=== PATIENT | female | born 2000 | race Caucasian/White ===

== ENCOUNTER 2023-01-17 09:01 | Emergency (ER) | payer OTHER, BC ==
[~2023-01-17] VITALS: Ht 170.2 cm; Wt 96.6 kg
[~2023-01-17 09:01] MED LIST: ADVIL200 MG PO; MICROGESTIN1 EACH PO; NORCO 5-325 TA1 EACH PO
[2023-01-17 10:02] VITALS: BP 135/84
== END 2023-01-17 10:02 | disposition home or self-care (01) ==
LOC: ED 09:01
DX: S61.411A Laceration without foreign body of right hand, initial encounter (principal); W27.4XXA Contact with kitchen utensil, initial encounter; Z23 Encounter for immunization; Z79.899 Other long term (current) drug therapy
CPT/HCPCS: 90715

== ENCOUNTER 2024-02-01 17:53 | Emergency (ER) | payer BC ==
[~2024-02-01] VITALS: Ht 170.2 cm; Wt 124.6 kg
[2024-02-01] MEDS ORDERED: MOUNJARO10 MG/0.5 SUB-Q (20:00)
[2024-02-01] MEDS ORDERED: LACTATED RINGER'S 1,000 ML IV ONE (20:45)
[2024-02-01 21:24] LABS: EOSINOPHILS 0.8 % (0-6); HEMATOCRIT 41.3 % (35.0-50.0); HEMOGLOBIN 14.1 g/dL (12.0-18.0); LYMPHOCYTES 20.1 % (24-44); MCH 29.7 (27-36); MCHC 34.1 g/dl (30-36); MCV 87.2 fl (81-99); MONOCYTES 4.6 % (0-12); NEUTROPHILS 73.5 % (39-80); PLATELET COUNT 340 K/uL (140-440); RBC 4.74 M/ul (4.3-5.7)
[2024-02-01 21:40] LABS: BILIRUBIN, URINE NEGATIVE (negative); BLOOD/HGB, URINE LARGE (Negative); KETONE, URINE NEGATIVE (Negative); LEUK ESTERASE, URINE NEGATIVE (negative); NITRITE, URINE NEGATIVE (negative)
[2024-02-01 21:41] LABS: ALBUMIN 4.1 g/dL (3.4-5.0); ALBUMIN/GLOBULIN RATIO 1.11 (1.1-2.4); ANION GAP 15.2 (7-21); BILIRUBIN, TOTAL 0.5 ng/dL (0.2-1.0); BUN/CREATININE RATIO 10.84 (6.0-28.6); CALCIUM 8.9 mg/dL (8.5-10.1); CREATININE, SERUM 0.83 mg/dL (0.55-1.02); POTASSIUM 4.2 mmol/L (3.5-5.1); PROTEIN, TOTAL 7.8 g/dL (6.4-8.2)
[2024-02-01 21:48] LABS: BACTERIA, URINE NONE SEEN /hpf (negative); CASTS, URINE NONE SEEN \\lpf; COLLECTION TYPE, URINE CLEAN CATCH; CRYSTALS, URINE NONE SEEN (0-1+); EPITHELIAL CELLS, URINE SQUAMOUS 3+ /lpf (0-1+); REFLEX CULTURE, URINE No (No)
[2024-02-01 21:54] LABS: AMPHETAMINES, URINE NEGATIVE (NEGATIVE); BARBITURATES, URINE NEGATIVE (NEGATIVE); BENZODIAZEPINE, URINE NEGATIVE (NEGATIVE); BUPRENORPHINE, URINE NEGATIVE (NEGATIVE); CANNABINOID, URINE NEGATIVE (NEGATIVE); COCAINE, URINE NEGATIVE (NEGATIVE); ECSTASY, URINE NEGATIVE (NEGATIVE); FENTANYL, URINE NEGATIVE (NEGATIVE); METHADONE, URINE NEGATIVE (NEGATIVE); OPIATES, URINE NEGATIVE (NEGATIVE); OXYCODONE, URINE NEGATIVE (NEGATIVE); PHENCYCLIDINE, URINE NEGATIVE (NEGATIVE)
[2024-02-01] MEDS ORDERED: PROVERA10 MG PO (21:55)
[2024-02-01 22:21] VITALS: BP 132/81
== END 2024-02-01 22:22 | disposition home or self-care (01) ==
LOC: ED 17:53
PROVIDERS: Internal Medicine
DX: N93.8 Other specified abnormal uterine and vaginal bleeding (principal)
CPT/HCPCS: 36415; 80053; 80307; 81001; 84703; 85025; 86140; 99284; J7121

== ENCOUNTER 2025-02-21 20:41 | Emergency (ER) | payer BC, OTHER ==
[~2025-02-21] VITALS: Ht 162.6 cm; Wt 116.5 kg
--- OUTSIDE RECORDS SUMMARY | ~2025-02-21 | XMS | Continuity of Care Document ---
Demographics + + + | Address | [address] | | | [place] [address] | + + + | Preferred Language | Unknown | + + + | Marital Status | Unknown | + + + | Denominational Affiliation | Unknown | + + + | Race | White | + + + | Ethnic Group | Not or | + + + Author + + + | Author | [facility] | + + + | Organization | [facility] | + + + | Address | [address] | | | [place] [address] | + + + | Phone | | + + + Care Team Providers + + + + | Care Director Recreation Name | Role | Phone | + + + + Unavailable | Unavailable | + + + + Allergies No information. Encounters No information. Functional Status No information. Immunizations No information. Medications No information. Problems + + + + | date | description | facility | + + + + | 2024-12-19 12:52:10 | Pre-existing essential | [facility] | | | hypertension complicating | | | | , third trimester | | + + + + | 2024-12-19 12:52:10 | Maternal care for other | [facility] | | | known or suspected poor | | | | growth, unspecified | | | | trimester, not applicable | | | | or unspecified | | + + + + Procedures No information. Results/Labs No information. Social History +--------+ + + | date | description | facility | +--------+ + + Vital Signs No information."
[~2025-02-21 20:41] MED LIST changes: +MOUNJARO10 MG/0.5 SUB-Q; +PROVERA10 MG PO
[2025-02-21] MEDS ORDERED: NIFEDIPINE ER30 M1 (21:07)
[2025-02-21] MEDS ORDERED: METOPROLOL TARTRATE 5 MG/5 ML VIAL IV ONE (21:15)
[2025-02-21] MEDS ORDERED: LACTATED RINGER'S 1,000 ML IV ONE (21:15)
[2025-02-21 21:33] LABS: BASOPHILS 0.3 % (0.1-1.2); HEMATOCRIT 41.1 % (34.1-44.9); HEMOGLOBIN 14.1 g/dL (11.2-15.7); LYMPHOCYTES 23.5 % (19.3-51.7); MCH 29.5 PG (25.6-32.2); MCHC 34.3 g/dL (32.2-35.5); MONOCYTES 4.3 % (4.7-12.5); NEUTROPHILS 70.6 % (34.0-71.1); PLATELET COUNT 362 K/uL (182-369); RBC 4.78 M/uL (3.93-5.22)
[2025-02-21 21:52] LABS: ALBUMIN 4.3 g/dL (3.4-5.0); ALBUMIN/GLOBULIN RATIO 1.08 (1.1-2.4); ANION GAP 13.6 (7-21); BILIRUBIN, TOTAL 0.5 mg/dL (0.2-1.0); BUN/CREATININE RATIO 16.48 (6.0-28.6); CALCIUM 9.9 mg/dL (8.5-10.1); CREATININE, SERUM 0.91 mg/dL (0.55-1.02); MAGNESIUM 1.7 mg/dL (1.8-2.4); POTASSIUM 3.6 mmol/L (3.5-5.1); PROTEIN, TOTAL 8.3 g/dL (6.4-8.2)
[2025-02-21 21:58] LABS: INR 1.05 (0.80-1.30); PROTIME 13.3 Sec (11.2-14.2)
[2025-02-21] MEDS ORDERED: TOPROL XL50 MG PO (22:13)
[2025-02-21] MEDS ORDERED: MAGNESIUM OXIDE 400 MG TABLET PO ONE (22:15)
[2025-02-21] MEDS ORDERED: METOPROLOL TARTRATE 50 MG TAB PO ONE (22:15)
[2025-02-21 22:36] VITALS: BP 144/91
--- NOTE | 2025-02-22 21:34 | EKG ---
[facility] [address] [place] [address] Signed Sinus tachycardia Otherwise normal ECG No previous ECGs available Confirmed by Belia Lane MD () on 02/22/2025 9:34:19 PM Electronically Signed By: BELIA LANE MD 02/22/25 2134 PATIENT NAME: CHARLES NIEVES NAOMI Electrocardiogram DATE OF : [birth year] PHYSICIAN: BELIA LANE MD REPORT #: [id number] REPORT IS CONFIDENTIAL AND NOT TO BE RELEASED WITHOUT AUTHORIZATION
== END 2025-02-21 22:35 | disposition home or self-care (01) ==
LOC: ED 20:41
PROVIDERS: Family Medicine
DX: I47.10 Supraventricular tachycardia, unspecified (principal); Z90.721 Acquired absence of ovaries, unilateral; Z90.79 Acquired absence of other genital organ(s)
CPT/HCPCS: 36415; 80053; 83735; 84443; 84484; 85025; 85379; 85610; 93005; 93010; 93242; 96374; 99285-25; J7121